=== PATIENT | female | born 1945 | race Caucasian/White ===

== ENCOUNTER 2017-01-12 10:26 | Outpatient (CLI) | payer MEDICARE | END 2017-01-12 10:27 | DX: I10 Essential (primary) hypertension (principal); E78.5 Hyperlipidemia, unspecified ==

== ENCOUNTER 2017-04-28 09:29 | Outpatient (CLI) | payer MEDICARE, OTHER | END 2017-04-28 09:30 | disposition home or self-care (01) | LOC: LAB.R 09:29 | PROVIDERS: ATTEND Family Medicine | DX: Z01.818 Encounter for other preprocedural examination (principal) | CPT/HCPCS: 87077; 87081; 87640 ==

== ENCOUNTER 2017-07-06 07:35 | Inpatient (IN) | payer MEDICARE, OTHER ==
[~2017-07-06 07:35] MED LIST: ceFAZolin 2 GM/50 ML 50 ML IV ONE
[2017-07-06] MEDS ORDERED: LACTATED RINGERS 1,000 ML IV ONE ×2 (08:07→11:03)
[2017-07-06] MEDS ORDERED: ONDANSETRON 4 MG/2 ML VIAL IVP ONE (09:10)
[2017-07-06] MEDS ORDERED: ROPIVACAINE 0.5% PF 20 ML AMPULE EP ONE (09:10)
[2017-07-06] MEDS ORDERED: ROCURONIUM 50 MG/5 ML VIAL IVP ONE (09:10)
[2017-07-06] MEDS ORDERED: MIDAZOLAM 2 MG/2 ML VIAL IVP ONE (09:10)
[2017-07-06] MEDS ORDERED: DEXAMETHASONE 4 MG/ML VIAL IVP ONE (09:10)
[2017-07-06] MEDS ORDERED: LIDOCAINE-MPF 2% 5 ML VIAL IM ONE (09:10)
[2017-07-06] MEDS ORDERED: fentaNYL 100 MCG/2 ML VIAL IVP ONE (09:10)
[2017-07-06] MEDS ORDERED: ONDANSETRON 4 MG/2 ML VIAL IVP PRN (11:14)
[2017-07-06] MEDS ORDERED: SODIUM CHLORIDE FLUSH 0.9% 10 ML SYRINGE IVP PRN (11:14)
[2017-07-06] MEDS ORDERED: ACETAMINOPHEN 325 MG TABLET PO PRN (11:14)
--- NOTE | 2017-07-06 11:14 | OPERATIVE REPORT ---
Operative Report - General Admit Date: 07/06/17 Procedure Date: 07/06/17 Planned Procedure: Right total Shoulder arthroplasty Pre-Op Diagnosis: DJD Right shoulder Procedure Performed: Right total shoulder arthroplasty Post Op Diagnosis: same - Procedure Note Primary Surgeon: josh Anesthesia Provider: Anesthesia Technique: Regional block Estimated Blood Loss (mL): 300
[2017-07-06] MEDS: SODIUM CHLORIDE 0.45% 1,000 ML IV SCH ×2 (12:08→21:39)
[2017-07-06] MEDS: oxyCOD/ACETAMIN 5 MG/325 MG TABLET PO PRN ×3 (12:32→22:51)
--- NOTE | 2017-07-06 12:36 | XRAY Report ---
FRONTAL RIGHT SHOULDER: 07/06/2017 CLINICAL INDICATION: Post-op. FINDINGS: Frontal view of the right shoulder demonstrates a right shoulder replacement in place. Lane bcutaneous gas is seen. There is no evidence of acute fracture or hardware complication. IMPRESSION: EXPECTED POSTOPERATIVE APPEARANCE OF RIGHT SHOULDER REPLACEMENT. JOB #: [id number] EXT JOB #:[id number]
[2017-07-06] MEDS: SODIUM CHLORIDE FLUSH 0.9% 10 ML SYRINGE IVP SCH ×2 (13:25→20:48)
[2017-07-06] MEDS: ceFAZolin 2 GM/50 ML 50 ML IV SCH ×2 (13:55→21:39)
--- NOTE | 2017-07-06 18:07 | OPERATIVE REPORT ---
DATE OF SURGERY: 07/06/2017 00:00:00 PREOPERATIVE DIAGNOSIS: Right shoulder osteoarthritis. POSTOPERATIVE DIAGNOSIS: Right shoulder osteoarthritis. NAME OF PROCEDURE: Right total shoulder arthroplasty. SURGEON: Garry Mejia MD ASSISTANTS: Two techs. ANESTHESIA: By Cait __Neto was interscalene block and general. INDICATIONS FOR SURGERY: The patient is a 71-year-old female with progressive osteoarthritis of her right shoulder, with failure of nonoperative management and the desire for pain relief by total shoulder arthroplasty. FINDINGS AT SURGERY: The patient's shoulder joint showed a large effusion that was clear, pale yellow fluid. The patient had moderate osteopenic bone, especially on the humeral side, with bare [id number] articulation of the humeral head and the glenoid, with uniform cartilage loss on both surfaces. There were some intraosseous cysts in the trochanter area. DESCRIPTION OF OPERATIVE PROCEDURE: The patient was taken to the operating room and was given an interscalene block and then a general anesthetic, and positioned beach chair. Her shoulder was isolated with drapes, and sterilely prepped and draped in the standard fashion. After an adequate time-out, an anterior approach was made to the shoulder through an 8-inch incision from the coracoid to deltoid insertion, dissecting down to the fascial layer and mobilizing the cephalic vein medial and reflecting the deltoid lateral to expose the clavipectoral fascia in that area. The subscap was defined at its inferior border by circumflex vessels, which were ligated. An incision was made through the rotator interval and down the bicipital groove, mobilizing the subscap and capsule together, which were whipstitched with FiberWire. It was elected that with the diseased and frayed biceps tendon to perform a tenodesis, resecting it from the shoulder and tenodesing to the pec major insertion. The humeral head was exposed adequately for resection. Using a cutting guide, a resection was made of the humeral surface, and exposure was then gained of the glenoid with retractors positioned. The cartilage was marked for a central position for guide pin placements, followed by sizing for a small and then reaming to accommodate a smooth glenoid base down to the subchondral plate. This was the [employer] comprehensive shoulder system that was used with a porous titanium glenoid post on a hybrid glenoid. This was a size small and was appropriately inserted with cement on pegs and the titanium post in the drilled central hole. This was allowed to harden completely. The humerus was exposed. Reaming was performed and broaching up to accommodate ultimately a size 12 comprehensive shoulder stem, onto which modular heads were applied ultimately, electing to use a 50 mm head diameter with a 21 mm height. This allowed an excellent reduction, with a 50% posterior glide and 50% inferior glide. With the subscap pulled back with the capsule in position, this allowed stability of the shoulder and good range of motion without impingement. The implants were then placed with the appropriate head inserted and reduced into the shoulder. It was once again tested and then washed thoroughly with pulsatile lavage, sequentially closing the subscap to previously placed sutures for anatomic christianity of the subscap and then closing the subcutaneous tissue with Vicryl and Monocryl in the subcutaneous skin. Sterile dressings were applied, and the patient was fitted into an abduction Donjoy splint in a neutral position. The exam with the implants in place and the suture closure showed that her subscap remained safe in full forward elevation and rotation in the neutral position. The patient was then taken to the recovery room in stable condition. ESTIMATED BLOOD LOSS: Minimal. COMPLICATIONS: None. SPONGE AND NEEDLE COUNTS: Correct. JOB #: [id number] EXT JOB #:[id number] MTDD
[2017-07-06] MEDS: ASPIRIN 325 MG TABLET PO SCH (18:08)
[2017-07-07] MEDS: SODIUM CHLORIDE FLUSH 0.9% 10 ML SYRINGE IVP SCH ×3 (00:18→22:07)
[2017-07-07] MEDS: HYDROmorphone 1 MG/ML SYRINGE IVP PRN ×2 (00:18→07:48)
[2017-07-07] MEDS: oxyCOD/ACETAMIN 5 MG/325 MG TABLET PO PRN ×5 (05:16→22:04)
--- NOTE | 2017-07-07 07:00 | PROVIDER PROGRESS NOTE ---
Subjective - General Admit Date: 07/06/17 Procedure Date: 07/06/17 Post Op Days: 1 Procedure Performed: Right Total Shoulder Arthroplasty - Review of Systems Wound/Incisions: positive: Dressing dry and intact Musculoskeletal: positive: Shoulder pain Skin: positive: No symptoms Psychiatric: positive: No symptoms Objective - Patient Data Reviewed Vital Signs: Yes Vital Signs: Vital Signs x48h Temp Pulse Resp BP Pulse Ox 07/07/17 05:00 36.8 C 64 18 108/63 98 07/07/17 00:23 36.7 C 67 16 94/60 98 Weight: Weight 07/05/17 07/06/17 07/07/17 23:59 23:59 23:59 Weight (kg) 63.9 kg Intake & Output: Intake and Output Totals x24h 07/05/17 07/06/17 07/07/17 23:59 23:59 23:59 Intake Total 2759 1132 Balance 2759 1132 - Imaging Results Radiology Imaging: positive: EMP read indepedently - Current Medications Current Medications: Current Medications Generic Name Dose Route Start Last Admin Trade Name Brennenq PRN Reason Stop Dose Admin Aspirin 325 mg 07/06/17 17:00 07/06/17 18:08 Kisha PO 325 mg BIDWM ALEXI Administration Hydromorphone HCl 1 mg 07/06/17 11:14 07/07/17 00:18 Dilaudid Inj IVP 1 mg Q2HR PRN Administration Breakthrough Pain Sodium Chloride 1,000 mls @ 100 mls/hr 07/06/17 12:00 07/06/17 21:39 Normal Saline 0.45% IV 100 mls/hr .Q10H ALEXI Administration Oxycodone/Acetaminophen 1 tab 07/06/17 11:14 07/07/17 05:16 Percocet 5 Mg/325 Mg PO 1 tab Q4HR PRN Administration PAIN Sodium Chloride 10 ml 07/06/17 14:00 07/07/17 00:18 Normal Saline Flush 0.9% IVP 10 ml Q8HR ALEXI Administration - Physical Exam Wound/Incisions: positive: Dressing dry and intact General Appearance: positive: No acute distress Extremities: positive: Joint swelling Neurologic/Psychiatric: positive: Motor nml, Sensation nml, Mood/affect nml Impression/Plan - Problem List Problem List: POD #1 Pt is doing well. discussed holding PT/OT for now. Will begin to mobilize with nurse assist. Switch to PO pain meds.
[2017-07-07] MEDS: ASPIRIN 325 MG TABLET PO SCH ×2 (07:50→17:05)
[2017-07-07] MEDS: SODIUM CHLORIDE 0.45% 1,000 ML IV SCH ×2 (07:50→21:16)
[2017-07-07] MEDS ORDERED: ZOLPIDEM 5 MG TABLET PO ONE (21:14)
[2017-07-08] MEDS: SODIUM CHLORIDE 0.45% 1,000 ML IV SCH (06:17)
[2017-07-08] MEDS: oxyCOD/ACETAMIN 5 MG/325 MG TABLET PO PRN ×2 (06:39→13:59)
[2017-07-08] MEDS: SODIUM CHLORIDE FLUSH 0.9% 10 ML SYRINGE IVP SCH (06:41)
--- NOTE | 2017-07-08 07:39 | PROVIDER PROGRESS NOTE ---
Subjective - General Admit Date: 07/06/17 Procedure Date: 07/06/17 Post Op Days: 2 Procedure Performed: Right Total Shoulder Arthroplasty - Review of Systems Wound/Incisions: positive: Dressing dry and intact General: positive: No symptoms Musculoskeletal: positive: Shoulder pain, Joint pain Skin: positive: No symptoms Psychiatric: positive: No symptoms Objective - Patient Data Reviewed Vital Signs: Yes Vital Signs: Vital Signs x48h Temp Pulse Resp BP Pulse Ox 07/07/17 23:44 37.2 C 79 16 114/61 96 Weight: Weight 07/06/17 07/07/17 07/08/17 23:59 23:59 23:59 Weight (kg) 63.9 kg Intake & Output: Intake and Output Totals x24h 07/06/17 07/07/17 07/08/17 23:59 23:59 23:59 Intake Total 2759 2633 100 Balance 2759 2633 100 - Current Medications Current Medications: Current Medications Generic Name Dose Route Start Last Admin Trade Name Freq PRN Reason Stop Dose Admin Aspirin 325 mg 07/06/17 17:00 07/07/17 17:05 Kisha PO 325 mg BIDWM ALEXI Administration Hydromorphone HCl 1 mg 07/06/17 11:14 07/07/17 07:48 Dilaudid Inj IVP 1 mg Q2HR PRN Administration Breakthrough Pain Sodium Chloride 1,000 mls @ 100 mls/hr 07/06/17 12:00 07/08/17 06:17 Normal Saline 0.45% IV Not Given .Q10H ALEXI Oxycodone/Acetaminophen 1 tab 07/06/17 11:14 07/08/17 06:39 Percocet 5 Mg/325 Mg PO 1 tab Q4HR PRN Administration PAIN Sodium Chloride 10 ml 07/06/17 14:00 07/08/17 06:41 Normal Saline Flush 0.9% IVP 10 ml Q8HR ALEXI Administration - Physical Exam Wound/Incisions: positive: Healing well General Appearance: positive: No acute distress Skin: positive: No rash, Warm, Dry Extremities: positive: Joint swelling Impression/Plan - Problem List Problem List: POD #2 Doing well with decreasing pain. slept well with Ambien. Plan D/C to home office next wk.
--- NOTE | 2017-07-08 07:43 | Discharge Plan ---
Discharge Plan Disposition: 01 Home, Self Care Condition: Good Prescriptions: oxyCODONE/ACET 5/325 [Percocet 5 mg/325 mg] 1 tab PO Q4HR PRN #30 tablet PRN Reason: Pain Zolpidem [Ambien] 5 mg PO HS #10 tablet Senna [Senokot] 8.6 - 17.2 mg PO DAILY #20 tablet Diet: Regular Activity Restrictions: Additional Comments (no lift, push, pull right arm. sling off only for shower with arm at side.) Shower Restrictions: Yes (arm at side, sitting position, wound covered) Driving Restrictions: Yes (no driving) Assistance Devices: Sling Weight Bearing: Full Weight Additional Instructions or Follow Up instructions: Leave dressing intact, clean, dry. No Smoking: If you smoke, Please STOP! Call for help. Follow-up with: Ritchie Nicole DO [Primary Care Provider] - Garry Mejia MD [Provider Admit Priv/Credential] -
[2017-07-08 07:44] VITALS: BP 110/69
[2017-07-08] MEDS: ASPIRIN 325 MG TABLET PO SCH (08:03)
[2017-07-08] MEDS ORDERED: POLYETHYLENE GLYCOL 3350 17 GM PACKET PO SCH (09:00)
[2017-07-08] MEDS ORDERED: SENNA 8.6 MG TABLET PO SCH (09:00)
[2017-07-08] MEDS ORDERED: DOCUSATE SODIUM 250 MG CAPSULE PO SCH (09:00)
--- NOTE | 2017-07-12 16:18 | DISCHARGE SUMMARY ---
DATE OF ADMISSION: 07/06/2017 DATE OF DISCHARGE: 07/08/2017 ADMISSION DIAGNOSIS: Right shoulder osteoarthritis. OPERATIVE PROCEDURE: On 07/06/2017, right total shoulder arthroplasty. REASON FOR ADMISSION The patient is a 71-year-old female who has had progressive and worsening right shoulder arthritis, causing diminished range of motion and constant shoulder pain. The patient has be en preoperatively readied for right shoulder replacement with education and instruction, and now pres ents for elective surgery. The patient's prior medical history and exam are documented in her record. HOSPITAL COURSE: The patient underwent surgery on 07/06/2017, from which she proceeded to be admitted to the hospital afterwards, having no intraoperative complication. In the postoperative period, the patient received IV antibiotics and pain medication, and was in a sling and swath. The patient did ve ry well with pain management. By 07/08/2017, she was able to be discharged to her home in the care of family, receiving oral pain pills and instructions for sling use, with planned followup in the clini c within a week. JOB #: [id number] EXT JOB #:[id number]
== END 2017-07-08 14:10 | disposition home or self-care (01) | DRG 483 ==
LOC: MS2 07:35
PROVIDERS: ADMIT Orthopaedic Surgery; ATTEND Orthopaedic Surgery
PROC: 0LS30ZZ Reposition Right Upper Arm Tendon, Open Approach (ICD-10-PCS; 2017-07-06)
PROC: 0RRJ0JZ Replacement of Right Shoulder Joint with Synthetic Substitute, Open Approach (ICD-10-PCS; principal; 2017-07-06 08:30)
DX: M19.011 Primary osteoarthritis, right shoulder (principal); Z87.891 Personal history of nicotine dependence; I10 Essential (primary) hypertension; E78.5 Hyperlipidemia, unspecified

== ENCOUNTER 2018-12-06 14:56 | Outpatient (CLI) | payer MEDICARE, OTHER | END 2018-12-06 14:57 | disposition home or self-care (01) | LOC: LAB.WCP 14:56 | PROVIDERS: ATTEND Family Medicine | DX: E03.9 Hypothyroidism, unspecified (principal) | CPT/HCPCS: 36415; 84443 ==

== ENCOUNTER 2018-12-29 07:27 | Outpatient (CLI) | payer MEDICARE, OTHER ==
[2018-12-29 12:24] LABS: EOSINOPHILS # (AUTO) 0.1 10^3/uL (0.0-0.7); EOSINOPHILS % (AUTO) 1.9 %; HGB - HEMOGLOBIN 11.6 g/dL (12.0-16.0); LYMPHOCYTES # (AUTO) 1.5 10^3/uL (1.5-3.5); LYMPHOCYTES % (AUTO) 36.8 %; MEAN CORPUSCULAR HEMOGLOBIN 29.3 pg (27.0-31.0); MEAN CORPUSCULAR VOLUME 86.3 fL (81.0-99.0); MEAN PLATELET VOLUME 7.2 fL (7.9-10.8); MONOCYTES # (AUTO) 0.6 10^3/uL (0.0-1.0); MONOCYTES % (AUTO) 13.4 %; NEUTROPHILS % (AUTO) 46.9 %; PLT - PLATELET COUNT 513 10^3/uL (130-450); RED BLOOD COUNT 3.95 10^6/uL (4.20-5.40); RED CELL DISTRIBUTION WIDTH 15.7 % (12.0-15.0); WHITE BLOOD COUNT 4.2 x10^3/uL (4.8-10.8)
[2018-12-29 13:19] LABS: ALBUMIN 3.8 g/dL (3.2-5.5); ALBUMIN/GLOBULIN RATIO 1.1 (1.0-2.2); ALKALINE PHOSPHATASE 84 IU/L (42-121); ALT ALANINE AMINOTRANSFERASE 16 IU/L (10-60); AST ASPARTATE AMINOTRANSFERASE 24 IU/L (10-42); BILIRUBIN,TOTAL 0.6 mg/dL (0.2-1.0); BUN - BLOOD UREA NITROGEN 16 mg/dL (6-20); CARBON DIOXIDE - CO2 28 mmol/L (21-32); CHLORIDE 92 mmol/L (101-111); CHOL/HDL RATIO 1.9 (<4.4); CHOLESTEROL 211 mg/dL; CREATININE 0.5 mg/dL (0.4-1.0); GFR - MDRD 122 (>89); GLUCOSE 93 mg/dL (70-100); HDL CHOLESTEROL 111 mg/dL; LDL CHOLESTEROL,CALCULATED 89 mg/dL; LDL/HDL RATIO 0.8 (<4.4); SODIUM 128 mmol/L (135-145); TOTAL PROTEIN 7.2 g/dL (6.7-8.2); VLDL CHOLESTEROL 11 mg/dL
== END 2018-12-29 07:28 | disposition home or self-care (01) ==
LOC: LAB.WCP 07:27
PROVIDERS: ATTEND Family Medicine
DX: I10 Essential (primary) hypertension (principal); E78.5 Hyperlipidemia, unspecified
CPT/HCPCS: 36415; 80053; 80061; 83721; 85025

== ENCOUNTER 2019-02-24 08:00 | Outpatient (CLI) | payer MEDICARE, OTHER ==
[2019-02-24 14:03] LABS: CALCIUM 8.9 mg/dL (8.5-10.3); CREATININE 0.4 mg/dL (0.4-1.0)
== END 2019-02-27 23:59 | disposition home or self-care (01) ==
LOC: LAB.WCP 08:00
PROVIDERS: ATTEND Family Medicine
DX: E87.1 Hypo-osmolality and hyponatremia (principal)
CPT/HCPCS: 36415; 80048; 83930; 83935; 84300

== ENCOUNTER → 2020-09-23 | Outpatient (CLI) | payer MEDICARE, BC ==
[2020-09-23 11:38] LABS: BASOPHILS % (AUTO) 0.8 %; EOSINOPHILS % (AUTO) 0.4 %; HGB - HEMOGLOBIN 12.7 g/dL (12.0-16.0); LYMPHOCYTES # (AUTO) 1.4 10^3/uL (1.5-3.5); LYMPHOCYTES % (AUTO) 28.8 %; MEAN CORPUSCULAR HEMOGLOBIN 30.8 pg (27.0-31.0); MEAN CORPUSCULAR HGB CONC 33.4 g/dL (32.0-36.0); MEAN CORPUSCULAR VOLUME 92.2 fL (81.0-99.0); MEAN PLATELET VOLUME 9.2 fL (7.9-10.8); MONOCYTES # (AUTO) 0.4 10^3/uL (0.0-1.0); MONOCYTES % (AUTO) 8.8 %; NEUTROPHILS # (AUTO) 2.9 10^3/uL (1.5-6.6); PLT - PLATELET COUNT 368 10^3/uL (130-450); RED BLOOD COUNT 4.12 10^6/uL (4.20-5.40); RED CELL DISTRIBUTION WIDTH 13.9 % (12.0-15.0); WHITE BLOOD COUNT 4.8 x10^3/uL (4.8-10.8)
[2020-09-23 13:11] LABS: ALBUMIN 3.3 g/dL (3.2-5.5); ALBUMIN/GLOBULIN RATIO 0.8 (1.0-2.2); ALKALINE PHOSPHATASE 115 IU/L (42-121); ALT ALANINE AMINOTRANSFERASE 17 IU/L (10-60); AST ASPARTATE AMINOTRANSFERASE 24 IU/L (10-42); BILIRUBIN,TOTAL 0.8 mg/dL (0.2-1.0); BUN - BLOOD UREA NITROGEN 11 mg/dL (6-20); CARBON DIOXIDE - CO2 25 mmol/L (21-32); CHLORIDE 102 mmol/L (101-111); CHOL/HDL RATIO 1.8 (<4.4); CHOLESTEROL 266 mg/dL; CREATININE 0.5 mg/dL (0.4-1.0); GLUCOSE 91 mg/dL (70-100); HDL CHOLESTEROL 152 mg/dL; SODIUM 136 mmol/L (135-145); TOTAL PROTEIN 7.7 g/dL (6.7-8.2)
== END ==
LOC: LAB.WCP 09:54
PROVIDERS: ATTEND Family Medicine
DX: E78.5 Hyperlipidemia, unspecified (principal); E87.1 Hypo-osmolality and hyponatremia; E03.9 Hypothyroidism, unspecified
CPT/HCPCS: 36415; 80053; 80061; 83721; 84443; 85025

== ENCOUNTER 2021-08-08 07:00 | Outpatient (CLI) | payer MEDICARE, OTHER ==
[2021-08-08 18:09] LABS: BASOPHILS # (AUTO) 0.1 10^3/uL (0.0-0.1); EOSINOPHILS % (AUTO) 0.2 %; HCT - HEMATOCRIT 40.5 % (37.0-47.0); HGB - HEMOGLOBIN 13.2 g/dL (12.0-16.0); LYMPHOCYTES # (AUTO) 1.4 10^3/uL (1.5-3.5); LYMPHOCYTES % (AUTO) 28.7 %; MEAN CORPUSCULAR HEMOGLOBIN 31.1 pg (27.0-31.0); MEAN CORPUSCULAR HGB CONC 32.6 g/dL (32.0-36.0); MEAN CORPUSCULAR VOLUME 95.3 fL (81.0-99.0); MEAN PLATELET VOLUME 10.4 fL (7.9-10.8); MONOCYTES # (AUTO) 0.4 10^3/uL (0.0-1.0); MONOCYTES % (AUTO) 7.5 %; NEUTROPHILS # (AUTO) 3.1 10^3/uL (1.5-6.6); NEUTROPHILS % (AUTO) 62.4 %; PLT - PLATELET COUNT 348 10^3/uL (130-450); RED BLOOD COUNT 4.25 10^6/uL (4.20-5.40); RED CELL DISTRIBUTION WIDTH 12.9 % (12.0-15.0)
[2021-08-08 18:54] LABS: ALBUMIN 4.9 g/dL (3.2-5.5); ALBUMIN/GLOBULIN RATIO 1.6 (1.0-2.2); ALKALINE PHOSPHATASE 80 IU/L (42-121); ALT ALANINE AMINOTRANSFERASE 20 IU/L (10-60); AST ASPARTATE AMINOTRANSFERASE 26 IU/L (10-42); BILIRUBIN,TOTAL 0.9 mg/dL (0.2-1.0); BUN - BLOOD UREA NITROGEN 14 mg/dL (6-20); CALCIUM 10.3 mg/dL (8.5-10.3); CARBON DIOXIDE - CO2 27 mmol/L (21-32); CHLORIDE 99 mmol/L (101-111); CHOLESTEROL 264 mg/dL; CREATININE 0.5 mg/dL (0.4-1.0); GFR - MDRD 121 (>89); GLUCOSE 89 mg/dL (70-100); HDL CHOLESTEROL 130 mg/dL; LDL CHOLESTEROL,CALCULATED 125 mg/dL; POTASSIUM 4.2 mmol/L (3.5-5.0); SODIUM 140 mmol/L (135-145); TRIGLYCERIDES 46 mg/dL; VLDL CHOLESTEROL 9 mg/dL
[2021-08-08 18:55] LABS: THYROID STIMULATING HORMONE 1.98 uIU/mL (0.34-5.60)
== END 2021-08-08 23:59 | disposition home or self-care (01) ==
LOC: LAB.WCP 07:00
PROVIDERS: ATTEND Family Medicine
DX: E87.1 Hypo-osmolality and hyponatremia (principal); E78.5 Hyperlipidemia, unspecified; E03.9 Hypothyroidism, unspecified; I10 Essential (primary) hypertension
CPT/HCPCS: 36415; 80053; 80061; 83721; 84443; 85025

== ENCOUNTER 2023-09-28 11:10 | Outpatient (CLI) | payer MEDICARE, OTHER ==
[2023-09-28 18:04] LABS: EOSINOPHILS # (AUTO) 0.1 10^3/uL (0.0-0.7); EOSINOPHILS % (AUTO) 1.2 %; HCT - HEMATOCRIT 36.5 % (37.0-47.0); HGB - HEMOGLOBIN 11.9 g/dL (12.0-16.0); LYMPHOCYTES # (AUTO) 1.1 10^3/uL (1.5-3.5); LYMPHOCYTES % (AUTO) 26.4 %; MEAN CORPUSCULAR HEMOGLOBIN 31.6 pg (27.0-31.0); MEAN CORPUSCULAR HGB CONC 32.6 g/dL (32.0-36.0); MEAN CORPUSCULAR VOLUME 97.1 fL (81.0-99.0); MONOCYTES # (AUTO) 0.5 10^3/uL (0.0-1.0); MONOCYTES % (AUTO) 13.5 %; NEUTROPHILS # (AUTO) 2.3 10^3/uL (1.5-6.6); NEUTROPHILS % (AUTO) 57.7 %; PLT - PLATELET COUNT 312 10^3/uL (130-450); RED BLOOD COUNT 3.76 10^6/uL (4.20-5.40); RED CELL DISTRIBUTION WIDTH 14.2 % (12.0-15.0)
[2023-09-28 18:16] LABS: ALBUMIN 4.3 g/dL (3.2-5.5); ALBUMIN/GLOBULIN RATIO 1.6 (1.0-2.2); ALKALINE PHOSPHATASE 68 IU/L (42-121); ALT ALANINE AMINOTRANSFERASE 11 IU/L (10-60); AST ASPARTATE AMINOTRANSFERASE 20 IU/L (10-42); BILIRUBIN,TOTAL 0.6 mg/dL (0.2-1.0); BUN - BLOOD UREA NITROGEN 13 mg/dL (6-20); CALCIUM 9.5 mg/dL (8.5-10.3); CARBON DIOXIDE - CO2 29 mmol/L (21-32); CHLORIDE 100 mmol/L (101-111); CHOL/HDL RATIO 1.9 (<4.4); CHOLESTEROL 243 mg/dL; CREATININE 0.5 mg/dL (0.6-1.3); GFR - MDRD 120 (>89); GLUCOSE 87 mg/dL (74-104); HDL CHOLESTEROL 128 mg/dL; LDL CHOLESTEROL,CALCULATED 105 mg/dL; LDL/HDL RATIO 0.8 (<4.4); POTASSIUM 4.5 mmol/L (3.5-4.5); SODIUM 134 mmol/L (135-145); TRIGLYCERIDES 49 mg/dL (48-352); VLDL CHOLESTEROL 10 mg/dL
== END 2023-09-28 11:11 | disposition home or self-care (01) ==
LOC: LAB.N 11:10
PROVIDERS: ATTEND Physician Assistant
DX: I10 Essential (primary) hypertension (principal); E78.5 Hyperlipidemia, unspecified; E03.9 Hypothyroidism, unspecified
CPT/HCPCS: 36415; 80053; 80061; 83721; 84443; 85025

== ENCOUNTER 2024-01-05 12:28 | Outpatient (CLI) | payer MEDICARE, OTHER | END 2024-01-05 12:29 | disposition home or self-care (01) | LOC: DI 12:28 | PROVIDERS: ATTEND Physician Assistant | DX: I35.1 Nonrheumatic aortic (valve) insufficiency (principal); I77.810 Thoracic aortic ectasia | CPT/HCPCS: 93307 ==